=== PATIENT | female | born 1955 | race Caucasian/White ===

== ENCOUNTER 2022-11-25 13:32 | Outpatient (CLI) | payer MEDICARE | END 2022-11-25 13:33 | disposition home or self-care (01) | LOC: CSHCT 13:32 | PROVIDERS: ATTEND Family Medicine | DX: R91.1 Solitary pulmonary nodule (principal); R91.8 Other nonspecific abnormal finding of lung field | CPT/HCPCS: 71260; 82565 ==

== ENCOUNTER 2023-02-12 07:49 | Outpatient (CLI) | payer MEDICARE | END 2023-02-12 07:50 | disposition home or self-care (01) | LOC: CSHCT 07:49 | PROVIDERS: ATTEND Family Medicine | DX: R91.1 Solitary pulmonary nodule (principal); J98.4 Other disorders of lung | CPT/HCPCS: 71260; 82565 ==

== ENCOUNTER 2024-08-25 10:27 | Outpatient (CLI) | payer MEDICARE | END 2024-08-25 10:28 | disposition home or self-care (01) | LOC: CSHMAMMO 10:27 | PROVIDERS: ATTEND Family Medicine | DX: Z78.0 Asymptomatic menopausal state (principal); M85.89 Other specified disorders of bone density and structure, multiple sites | CPT/HCPCS: 77080 ==